=== PATIENT | male | born 1960 | race Caucasian/White ===

== ENCOUNTER 2016-07-17 00:18 | Emergency (ER) | payer SELFPAY ==
[2016-07-17 00:36] LABS: ALKALINE PHOSPHATASE 89 U/L (50-136); ALT/SGPT 239 U/L (7.53-40.17); AST/SGOT 293 U/L (6.66-35.34); BILIRUBIN,TOTAL 0.35 mg/dL (0.0-1.0); BLOOD UREA NITROGEN 9 mg/dL (7-18); CALCIUM 8.9 mg/dL (8.7-10.7); CARBON DIOXIDE 19 mmol/L (21-32); CREATINE KINASE 112 U/L (35-232); CREATININE 1.2 mg/dL (0.6-1.3); GLUCOSE,RANDOM 151 mg/dL (70-99); POTASSIUM 3.5 mmol/L (3.5-5.1); SODIUM 141 mmol/L (136-145); TOTAL PROTEIN 6.3 gm/dL (6.4-8.2)
[2016-07-17 00:38] LABS: BASO # 0.1 10_X3_uL (0.0-0.1); BASO % 0.5 % (0.2-1.2); EOS # 0.2 10_X3_uL (0.0-0.5); EOS % 1.7 % (0.8-7.0); GRAN # 7.4 10_X3_uL (1.8-5.4); GRAN % 56.1 % (34.0-67.9); HEMOGLOBIN 15.7 g/dL (13.7-17.5); LYMPH # 4.6 10_X3_uL (1.3-3.6); LYMPH % 34.4 % (21.8-53.1); MEAN CORPUSCULAR HEMOGLOBIN 31.7 pg (27.0-33.0); MEAN CORPUSCULAR HGB CONC 34.1 g/dL (32.0-36.0); MEAN CORPUSCULAR VOLUME 92.7 fL (79-92); MEAN PLATELET VOLUME 9.3 fl (7.5-11.5); MONO % 7.3 % (5.3-12.2); PLATELET COUNT 178 x10_3/uL (163-337); RED BLOOD COUNT 4.96 x10_6/uL (4.6-6.1); WHITE BLOOD COUNT 13.2 x10_3/uL (4.2-9.1)
== END 2016-07-17 00:50 | disposition short-term general hospital (02) ==
LOC: ER 00:18
PROVIDERS: Internal Medicine
DX: I21.3 ST elevation (STEMI) myocardial infarction of unspecified site (principal); I49.5 Sick sinus syndrome; I10 Essential (primary) hypertension; F17.210 Nicotine dependence, cigarettes, uncomplicated
CPT/HCPCS: 36415; 71010; 80053; 82550; 82553; 85025; 93005; 96374; 99285-25